=== PATIENT | female | born 1955 | race Caucasian/White ===

== ENCOUNTER 2020-04-11 10:38 | Observation (INO) | payer MEDICARE, OTHER ==
[2020-04-11 11:17] LABS: #Basophils 0.1 thou/uL (0.0-0.2); #Eosinphils 0.3 thou/uL (0.0-0.7); #Lymphocytes 2.3 thou/uL (1.20-3.40); #Monocytes 0.5 thou/uL (0.11-0.59); #Neutrophils 6.2 thou/uL (1.40-6.50); %Basophils 1.1 % (0.0-1.0); %Monocytes 5.1 % (0.0-10.0); %Neutrophils 65.7 % (42.0-75.0); Hemoglobin 12.9 g/dL (12.0-16.0); Mean Corpuscular HGB CONC 33.3 g/dL (32.0-36.0); Mean Corpuscular Hemoglobin 30.3 pg (27.0-31.0); Mean Platelet Volume 6.9 fL (7.4-10.4); Platelet Count 256 thou/uL (130-400); RBC Distribution Width 12.8 % (11.5-14.5); Red Blood Cell (RBC) Count 4.27 mill/uL (4.20-5.40); White Blood Cell (WBC) Count 9.4 thou/uL (4.8-10.8)
--- NOTE | 2020-04-11 11:26 | RAD ---
EXAM: Single view of the chest HISTORY: Chest pain COMPARISON: None FINDINGS: Single view of the chest shows a normal sized cardiomediastinal silhouette. There is no liu dence of consolidation, mass, or pleural effusion. Degenerative changes are seen in the spine. IMPRESSION: No evidence of acute cardiopulmonary disease
[2020-04-11 11:43] LABS: ALT (SGPT) 23 U/L (8-55); AST (SGOT) 18 U/L (5-34); Albumin 3.9 g/dL (3.4-4.8); Alkaline Phosphatase 73 U/L (40-110); Anion Gap 13 mmol/L (10-20); BUN (Urea Nitrogen) 19 mg/dL (9.8-20.1); Bilirubin, Total 0.4 mg/dL (0.2-1.2); Calc. Creatinine Clearance 0 mL/min (70-130); Carbon Dioxide 27 mmol/L (23-31); Chloride 104 mmol/L (98-107); Globulin 2.9 g/dL (2.4-3.5); Glucose 158 mg/dL (80-115); Potassium 4.3 mmol/L (3.5-5.1); Protein, Total 6.8 g/dL (5.8-8.1); Sodium 140 mmol/L (136-145)
[2020-04-11 16:14] LABS: Troponin I Less than 0.010 ng/mL (< 0.028)
--- NOTE | 2020-04-11 17:41 | PDOC.HHP ---
Hospitalist MARCO A Chest pain History of Present Illness: Ms. Benavides is a 64F with a PMHx of hypertension, hyperlipidemia, hypothyroid ism, type 2 diabetes mellitus who presents emergency room for evaluation of chest pain. Patient reports that she has had persistent chest pain over the past 2 to 3 weeks and she noticed an increase worsening last night prompting her to present to the ER today. She reports that the pain is in her left upper chest and does not radiate to the arm jaw or back. She reports no aggravating or alleviating factors. Notices no difference with position. No difference with exertion. She denies any shortness of breath, lightheadedness, nausea or dizziness associated with this pain. She denies any history of smoking, has no family history of cardiac disease. She has never had any problems with her heart in the past. In emergency room initial vital signs 130/88, 92, 16, 98.1, 97% on room air. EKG showed normal sinus rhythm with no ischemic changes. Initial troponin less than 0.010. Chest x-ray with no acute findings. BUN/CR 19/0.82, sodium 140, potassium 4.3, glucose 158. H/H 12.9/38.8, WBC 9.4, platelets 256. Past History: PMHx: Hypertension Hyperlipidemia Hypothyroidism Type 2 diabetes mellitus PSHx: Cholecystectomy x2 Tonsillectomy FHx: Family history of strokes in patient's father and dementia in patient's mother. Social: Lives at home with family, denies alcohol, tobacco or drug use. Hospitalist MARCO A PALOMO Constitutional: denies: fever, chills, sweats, weakness, malaise, other Eyes: denies: pain, vision change, conjunctivae inflammation, eyelid inflammation, redness, other ENT: denies: ear pain, ear discharge, nose pain, nose discharge, nose congestion, mouth pain, mouth swelling, throat pain, throat swelling, other Respiratory: denies: cough, dry, shortness of breath, hemoptysis, SOB with excertion, pleuritic pain, sputum, wheezing, other Cardiovascular: reports: chest pain. denies: palpitations, orthopnea, paroxysmal noc. dyspnea, edema, light headedness, other Gastrointestinal: denies: nausea, vomiting, abdominal pain, diarrhea, constipation, melena, hematochezia, other Genitourinary: denies: dysuria, frequency, incontinence, hematuria, retention, other Musculoskeletal: denies: neck pain, shoulder pain, arm pain, back pain, hand pain, leg pain, foot pain, other Skin: denies: rash, lesions, lazara, bruising, other Neurological: denies: weakness, numbness, incoordination, change in speech, confusion, seizures, other Hospitalist Exam General Appearance: NAD, awake alert Eye: PERRL, anicteric sclera ENT: normocephalic atraumatic, no oropharyngeal lesions, moist mucosa Neck: supple, symmetric, no JVD, no thyromegaly, no lymphadenopathy, no carotid bruit Heart: RRR, no murmur, no gallops, no rubs, normal peripheral pulses Respiratory: CTAB, no wheezes, no rales, no ronchi, normal chest expansion, no tachypnea, normal percussion Gastrointestinal: soft, non-tender, non-distended, normal bowel sounds, no palpable masses, no hepatomegaly, no splenomegaly, no bruit Extremities: no cyanosis, no clubbing, no edema Skin: normal turgor, no lesions, no rashes Neurological: cranial nerve grossly intact, normal sensation to touch, no weakness, no focal deficits, no new deficit Musculoskeletal: normal tone, normal strength, no muscle wasting Psychiatric: normal affect, normal behavior, A&O x 3 Hospitalist Results Result Diagrams: 04/11/20 11:04 04/11/20 11:05 Lab results: Laboratory Last Values WBC 9.4 thou/uL (4.8-10.8) 04/11/20 11:04 RBC 4.27 mill/uL (4.20-5.40) 04/11/20 11:04 Hgb 12.9 g/dL (12.0-16.0) 04/11/20 11:04 Hct 38.8 % (36.0-47.0) 04/11/20 11:04 MCV 91.0 fL (78.0-98.0) 04/11/20 11:04 MCH 30.3 pg (27.0-31.0) 04/11/20 11:04 MCHC 33.3 g/dL (32.0-36.0) 04/11/20 11:04 RDW 12.8 % (11.5-14.5) 04/11/20 11:04 Plt Count 256 thou/uL (130-400) 04/11/20 11:04 MPV 6.9 fL (7.4-10.4) L 04/11/20 11:04 Neutrophils % 65.7 % (42.0-75.0) 04/11/20 11:04 Lymphocytes % 25.0 % (21.0-51.0) 04/11/20 11:04 Monocytes % 5.1 % (0.0-10.0) 04/11/20 11:04 Eosinophils % 3.0 % (0.0-10.0) 04/11/20 11:04 Basophils % 1.1 % (0.0-1.0) H 04/11/20 11:04 Neutrophils # 6.2 thou/uL (1.40-6.50) 04/11/20 11:04 Lymphocytes # 2.3 thou/uL (1.20-3.40) 04/11/20 11:04 Monocytes # 0.5 thou/uL (0.11-0.59) 04/11/20 11:04 Eosinophils # 0.3 thou/uL (0.0-0.7) 04/11/20 11:04 Basophils # 0.1 thou/uL (0.0-0.2) 04/11/20 11:04 Sodium 140 mmol/L (136-145) 04/11/20 11:05 Potassium 4.3 mmol/L (3.5-5.1) 04/11/20 11:05 Chloride 104 mmol/L (98-107) 04/11/20 11:05 Carbon Dioxide 27 mmol/L (23-31) 04/11/20 11:05 Anion Gap 13 mmol/L (10-20) 04/11/20 11:05 BUN 19 mg/dL (9.8-20.1) 04/11/20 11:05 Creatinine 0.82 mg/dL (0.6-1.1) 04/11/20 11:05 Estimated GFR (MDRD) 70 04/11/20 11:05 Glucose 158 mg/dL (80-115) H 04/11/20 11:05 Calcium 9.0 mg/dL (7.8-10.44) 04/11/20 11:05 Total Bilirubin 0.4 mg/dL (0.2-1.2) 04/11/20 11:05 AST 18 U/L (5-34) 04/11/20 11:05 ALT 23 U/L (8-55) 04/11/20 11:05 Alkaline Phosphatase 73 U/L (40-110) 04/11/20 11:05 Troponin I Less than 0.010 ng/mL (< 0.028) 04/11/20 15:35 Serum Total Protein 6.8 g/dL (5.8-8.1) 04/11/20 11:05 Albumin 3.9 g/dL (3.4-4.8) 04/11/20 11:05 Globulin 2.9 g/dL (2.4-3.5) 04/11/20 11:05 Albumin/Globulin Ratio 1.3 g/dL (1.2-2.2) 04/11/20 11:05 Hospitalist H&P A/P Plan: Atypical chest pain Patient describes atypical chest pain over the past 2 to 3 weeks which is persistent. EKG showed normal sinus rhythm, initial troponin less than 0.010. Chest x-ray with no acute findings. Vital signs stable. No history of cardiac disease. No family history of cardiac disease. Patient is a non-smoker. Given patient's comorbidities including diabetes and female gender will admit for ches t pain rule out. Will trend troponins and perform stress test in morning if low. Plan Troponin Telemetry monitoring Aspirin, statin Lipid panel, TSH, magnesium N.p.o. at midnight, stress test in a.m. Type 2 diabetes mellitus Patient with history of type 2 diabetes mellitus on Janumet and Metformin. We will continue once dosages are confirmed. Carb consistent diet, ACH S glucose checks. Hypertension We will continue home hydrochlorothiazide. Hyperlipidemia We will continue home cholesterol medications Hypothyroidism We will continue home levothyroxine once dosage confirmed. DVT prophylaxisSCDs Full codeMDM is patient's Case discussed with attending physician, Dr. Lowe.
[2020-04-11] MEDS ORDERED: Aspirin 325 MG TAB PO SCH (18:30)
[2020-04-11 20:57] VITALS: BMI 40.7
[2020-04-11] MEDS: Nitroglycerin 2% Ointment 1 INCH/1 GM Packet TOP SCH (21:05)
[2020-04-12 04:51] LABS: Cardiac Risk 2.5 (Less than 4.5)
[2020-04-12] MEDS: Nitroglycerin 2% Ointment 1 INCH/1 GM Packet TOP SCH (04:57)
[2020-04-12] MEDS ORDERED: Aspirin Chewable 81 MG TAB PO SCH (09:00)
[2020-04-12] MEDS ORDERED: Enoxaparin Sodium 40 MG/0.4 ML SYRINGE SC SCH (09:00)
--- NOTE | 2020-04-12 13:01 | NM ---
EXAM: Cardiac SPECT HISTORY: Chest pain, hypertension, diabetes PROTOCOL: Stress only, single isotope TYPE OF STRESS: Pharmacologic stress with adenosine was monitored and interpreted by Dr. Lemus RADIOPHARMACEUTICAL: 33 mCi technetium 99m-sestamibi injected intravenously FINDINGS: Homogeneous tracer distribution is seen in the myocardial segments on the post stress images. Gated SPECT LVEF: 69% Wall motion exam: Normal IMPRESSION: Normal post stress myocardial perfusion scan.
[2020-04-12 14:24] VITALS: BP 117/68; TEMP 97.4
--- NOTE | 2020-04-12 17:30 | PDOC.DS.DS ---
Provider Date of Admission: 04/11/20 15:27 Date of Discharge: 04/12/20 Admitting Provider: Lucita Lowe MD Consultations: None Primary Care Physician: Yosvany Handley MD Course Hospital Course: Patient is a 64-year-old female with hypertension, hyperlipidemia and diabetes mellitus type 2 presented to the emergency room with chest discomfort on 04/11. Please refer to the history and physical for further details. The patient was admitted to the hospital with a diagnosis of chest discomfort rule out acute coronary syndrome. Serial troponins remained negative. She underwent Cardiolite stress test that was negative for reversible ischemia. Ejection fraction was 69% without any wall motion abnormality. Echocardiogram was also ordered on admission that showed ejection fraction 50 to 55% with mild tricuspid regurgitation. Patient is chest pain-free and appears stable for discharge. Plan of care was discussed with the patient and her spouse at the bedside who stated understanding. Final diagnosis: Chest painacute coronary syndrome ruled out Diabetes mellitus type 2 Hypertension Hyperlipidemia Morbid obesity with a BMI of 40.7 Hypothyroidism Glaucoma Resuscitation Status: 04/11/20 17:16 Resuscitation Status Routine Co-Sign Provider: Resuscitation Status: FULL: Full Resuscitation Lab Results: 04/11/20 11:04 04/11/20 11:05 Abnormal Lab Results - Last 48 hrs 04/11/20 11:04: MPV 6.9 L, Basophils % 1.1 H Fasting lipid profile showed LDL of 73 cholesterol of 164 triglyceride 129 with HDL of 65. Vitals: Vital Signs (12 hours) Temp Pulse Resp BP Pulse Ox 04/12/20 13:30 97.4 F L 80 17 117/68 97 04/12/20 08:49 96 04/12/20 08:00 97.5 F L 89 18 133/63 96 Weight Weight 260 lb 1 oz Physical Exam: The patient was seen and examined on the day of discharge. Plan Home Medications: Medication Instructions Recorded Confirmed Type Calcium Carbonate [Calcium] 600 mg PO DAILY 04/11/20 04/11/20 History Cholecalciferol (Vitamin D3) 4,000 unit PO DAILY 04/11/20 04/11/20 History [Vitamin D] Hydrochlorothiazide 12.5 mg PO DAILY 04/11/20 04/11/20 History Insulin Degludec [Tresiba 48 unit SQ DAILY 04/11/20 04/11/20 History Flextouch U-100] Latanoprost [Latanoprost 0.05% 1 drop EA EYE HS 04/11/20 04/11/20 History Ophth] Levothyroxine Sodium [Synthroid] 88 mcg PO DAILY 04/11/20 04/11/20 History [place]-3 Fatty Acids/Fish Oil [Fish 1 cap PO DAILY 04/11/20 04/11/20 History Oil 1,200 mg Softgel] Rosuvastatin [Crestor] 5 mg PO HS 04/11/20 04/11/20 History Ubidecarenone [Co Q-10] 100 mg PO DAILY 04/11/20 04/11/20 History sitaGLIPtin Phos/metFORMIN HCl 1 each PO DAILY 04/11/20 04/11/20 History [Janumet 50-1,000 mg Tablet] Allergies: No Known Allergies Allergy (Unverified 04/11/20 20:45) Referrals: Yosvany Handley MD [Primary Care Provider] - 7 Days (Please call to schedule a follow up appoitment with your Primary Care Provider.) Disposition: HOME Quality CORE MEASURES:: N/A
--- NOTE | 2020-04-16 20:23 | EKG ---
Test Reason : CHEST PAIN Blood Pressure : / mmHG Vent. Rate : 085 BPM Atrial Rate : 085 BPM P-R Int : 150 ms QRS Dur : 076 ms QT Int : 368 ms P-R-T Axes : 052 -13 064 degrees QTc Int : 437 ms Normal sinus rhythm Low voltage QRS Borderline ECG Confirmed by ANGELIKA MCCOY M.D. ([id number]), marketing editor KAN BARRIOS ([id number]) on 04/16/2020 8:22:42 PM Referred By: Confirmed By:ANGELIKA MCCOY M.D.
== END 2020-04-12 14:40 | disposition home or self-care (01) ==
LOC: ERS 10:38 → 2NO 15:27
PROVIDERS: ADMIT Internal Medicine; ATTEND Internal Medicine
DX: R07.89 Other chest pain (principal); E11.9 Type 2 diabetes mellitus without complications; I10 Essential (primary) hypertension; E78.5 Hyperlipidemia, unspecified; E03.9 Hypothyroidism, unspecified; H40.9 Unspecified glaucoma; E66.01 Morbid (severe) obesity due to excess calories; Z68.41 Body mass index [BMI] 40.0-44.9, adult; Z79.4 Long term (current) use of insulin; Z79.899 Other long term (current) drug therapy
CPT/HCPCS: 71045; 78452; 80053; 80061; 83735; 84443; 84484 ×2; 85025; 93005; 93017; 93306; 94760; 99285; A9500; 36415; G0378; J0153; J1650